=== PATIENT | male | born 1960 | race Two or more races ===

== ENCOUNTER 2017-07-08 08:51 | Inpatient (IN) | payer BC ==
[2017-07-08 09:42] VITALS: BMI 20.3
--- NOTE | 2017-07-08 13:04 | HP ---
COWS - Scale Resting Pulse: 0= [place] 80 or Below Sweatin= Chills/Flushing Restless Observation: 1= Difficult to Sit Still Pupil Size: 0= Normal to Room Light Bone or Joint Aches: 2= Severe Diffuse Aches Runny Nose/ Eye Tearin= Runny Nose/Eyes GI Upset > 30mins: 1= Stomach Cramp Tremor Observation: 2= Slight Tremor Visible Yawning Observation: 2= >3x During Session Anxiety or Irritability: 2=Irritable/Anxious Goose Flesh Skin: 0=Smooth Skin COWS Score: 13 Admission ROS S - HPI Chief Complaint: "I want to really stop doing Heroin. Patient is here to Detox from Heroin. Allergies/Adverse Reactions: Allergies Allergy/AdvReac Type Severity Reaction Status Date / Time vancomycin Allergy Severe Hives Verified 07/08/17 10:52 History of Present Illness: Patient is a 57 YO male here to Detox from Heroin. This is patient's first Detox /Rehab admission at [facility]. Patient has had previous Detox admissions at [facility] ([place] and [facility] ([place] both approx. 10 years ago. Exam Limitations: No Limitations - Ebola screening Have you traveled outside of the country in the last 21 days: No Have you had contact with anyone from an Ebola affected area: No Have you been sick,other than usual withdrawal symptoms: No Do you have a fever: No - Review of Systems Constitutional: Chills, Diaphoresis, Fever, Loss of Appetite, Malaise, Night Sweats, Changes in sleep, Unintentional Wgt. Loss (Lost Approx. 15 lbs. over last 6 months.) EENT: reports: No Symptoms Reported Respiratory: reports: SOB with Exertion Cardiac: reports: Palpitations (Only when Glucose level is low.) GI: reports: Nausea, Poor Appetite : reports: No Symptoms Reported Musculoskeletal: reports: Joint Pain, Joint Stiffness Integumentary: reports: No Symptoms Reported Neuro: reports: Headache (Occasional.), Numbness (Bilateral Lower Legs and Feet. ), Tingling (Bilateral Lower Legs and Feet.), Tremors Endocrine: reports: No Symptoms Reported Hematology: reports: Anemia Psychiatric: reports: Judgement Intact, Mood/Affect Appropiate, Orientated x3, Anxious, other (Insomnia.) Other Systems: Reviewed and Negative (Iron-Deficiency Type; Takes Daily Iron Supplement.) Patient History - Patient Medical History Hx Anemia: Yes (Iron-Deficiency type, Takes Daily Iron Supplement.) Hx Asthma: No Hx Chronic Obstructive Pulmonary Disease (COPD): No Hx Cancer: No Hx Cardiac Disorders: No Hx Congestive Heart Failure: No Hx Hypertension: Yes (On meds.) Hx Hypercholesterolemia: Yes (On med.) Hx Pacemaker: No HX Cerebrovascular Accident: No Hx Seizures: No Hx Dementia: No Hx Diabetes: Yes (IDDM.) Hx Gastrointestinal Disorders: No Hx Liver Disease: No Hx Genitourinary Disorders: No Hx Sexually Transmitted Disorders: No Hx Renal Disease (ESRD): Yes (History of Impaired Renal Function.) Hx Thyroid Disease: Yes (Hypothyroidism, On med.) Hx Human Immunodeficiency Virus (HIV): Yes (Diagnosed 1988; On meds.) Hx Hepatitis C: Yes (Completed treatment with Harvoni - 2014. Undetectable VL.) Hx Depression: No Hx Suicide Attempt: No (PATIENT DENIES CURRENT SI / HI.) Hx Bipolar Disorder: No Hx Schizophrenia: No Other Medical History: DENIES. - Patient Surgical History Past Surgical History: Yes Hx Neurologic Surgery: No Hx Cataract Extraction: No Hx Cardiac Surgery: No Hx Lung Surgery: No Hx Breast Surgery: No Hx Breast Biopsy: No Hx Abdominal Surgery: No Hx Appendectomy: Yes (in 1985) Hx Cholecystectomy: No Hx Genitourinary Surgery: No Hx Section: No Hx Orthopedic Surgery: No Other Surgical History: left inguinal hernia at age 26 Anesthesia Reaction: No - PPD History Previous Implant?: Yes Documented Results: Negative w/o proof Implanted On Prior R Admission?: No PPD to be Administered?: Yes - Reproductive History Patient is a Female of Child Bearing Age (11 -55 yrs old): No (PATIENT IS MALE.) - Smoking Cessation Smoking history: Never smoked Have you smoked in the past 12 months: No Cigars Per Day: 0 Hx Chewing Tobacco Use: No Initiated information on smoking cessation: No - Substance & Tx. History Substance Use Type: Marijuana Hx Substance Use Treatment: Yes (Detox admission at [facility] ( both approx. 10 years ago)) - Substances Abused Heroin Route: Inhalation Frequency: Daily Amount used: 4 bags Age of first use: 16 Date of Last Use: 07/07/17 Marijuana Route: Smoking Frequency: Daily Amount used: $20 Age of first use: 16 Date of Last Use: 07/07/17 Family Disease History - Family Disease History Family Disease History: Diabetes: Father (Arthritis.), Mother (Arthritis.), Other: Mother, Brother Admission Physical Exam [facility] - Vital Signs Vital Signs: Vital Signs - 24 hr 07/08/17 09:39 Temperature 93.5 F L Pulse Rate 68 Respiratory 20 Rate Blood Pressure 153/72 - Physical General Appearance: Yes: No Apparent Distress, Nourished, Appropriately Dressed , Tremorous, Anxious HEENTM: Yes: Hearing grossly Normal, Normocephalic, Normal Voice, ABILIO, Tm's normal Respiratory: Yes: Chest Non-Tender, Lungs Clear, No Respiratory Distress, No Accessory Muscle Use Neck: Yes: No masses,lesions,Nodules, Supple, Trachea in good position Breast: Yes: Breast Exam Deferred Cardiology: Yes: Regular Rhythm, Regular Rate, S1, S2 Abdominal: Yes: Normal Bowel Sounds, Non Tender, Flat, Soft Genitourinary: Yes: Within Normal Limits Back: Yes: Normal Inspection Musculoskeletal: Yes: full range of Motion, Gait Steady Extremities: Yes: Normal Range of Motion, Tremors Neurological: Yes: Fully Oriented, Alert, Normal Mood/Affect, Normal Response Integumentary: Yes: Normal Color, Dry, Warm Lymphatic: Yes: Within Normal Limits - Diagnostic (1) Opioid dependence with withdrawal Current Visit: Yes Status: Acute (2) Cannabis dependence, uncomplicated Current Visit: Yes Status: Acute (3) HIV (human immunodeficiency virus infection) Current Visit: Yes Status: Chronic (4) Hypertension Current Visit: Yes Status: Chronic Qualifiers: Hypertension type: essential hypertension Qualified Code(s): I10 - Essential (primary) hypertension (5) Hypercholesterolemia Current Visit: Yes Status: Chronic (6) Hypothyroidism Current Visit: Yes Status: Chronic Qualifiers: Hypothyroidism type: unspecified Qualified Code(s): E03.9 - Hypothyroidism , unspecified (7) History of hepatitis C Current Visit: Yes Status: Resolved Comment: Completed Treatment with Harvoni. (8) IDDM (insulin dependent diabetes mellitus) Current Visit: Yes Status: Chronic (9) Iron deficiency anemia Current Visit: Yes Status: Chronic Qualifiers: Iron deficiency anemia type: unspecified iron deficiency Qualified Code(s) : D50.9 - Iron deficiency anemia, unspecified (10) Insomnia Current Visit: Yes Status: Suspected Qualifiers: Insomnia type: unspecified Qualified Code(s): G47.00 - Insomnia, unspecified (11) Impaired renal function Current Visit: Yes Status: Suspected Cleared for Admission [facility] - Detox or Rehab [facility] Level of Care: Medically Managed Detox Regimen/Protocol: Methadone [facility] Breath Alcohol Content Breath Alcohol Content: 0 Urine Drug Screen - Results Drug Screen Negative: No Urine Drug Screen Results: THC-Marijuana, OPI-Opiates
[2017-07-08] MEDS ORDERED: IBUPROFEN 400 MG TABLET (FP) PO PRN (13:41)
[2017-07-08] MEDS ORDERED: MAG HYDROX/AL HYDROX/SIMETH 30 ML UNIT-DOSE CUP PO PRN (13:41)
[2017-07-08] MEDS ORDERED: MAGNESIUM HYDROX 2400MG/30ML ORAL SUSPENSION 30 ML CUP PO PRN (13:41)
[2017-07-08] MEDS ORDERED: guaiFENesin/D-METHORPHAN HB 10 ML UNIT-DOSE CUPS PO PRN (13:41)
[2017-07-08] MEDS ORDERED: MENTHOL/PHENOL 1 EACH UD MM PRN (13:41)
[2017-07-08] MEDS ORDERED: MAGNESIUM CITRATE 300 ML BOTTLE PO PRN (13:41)
[2017-07-08] MEDS ORDERED: P-EPHED 60MG/TRIPROLIDI 2.5MG TABLET PO PRN (13:41)
[2017-07-08] MEDS ORDERED: LOPERAMIDE HCL 2 MG CAPSULE PO PRN (13:41)
[2017-07-08] MEDS ORDERED: ACETAMINOPHEN 325 MG TABLET (FP) PO PRN (13:41)
[2017-07-08] MEDS ORDERED: DOCUSATE SODIUM 100 MG CAPSULE (FP) PO PRN (13:46)
[2017-07-08] MEDS ORDERED: METHADONE HCL 10 MG TABLET (FOR DETOX USE ONLY) PO ONE ×2 (14:43→23:00)
[2017-07-08] MEDS: diazePAM 5 MG TABLET PO PRN ×2 (15:22→20:28)
[2017-07-08] MEDS ORDERED: DOLUTEGRAVIR SODIUM 50 MG TABLET PO SCH (17:00)
[2017-07-08] MEDS ORDERED: INSULIN (NOVOLOG) ASPART 100 UNITS/ML 10ML VIAL ONE (17:02)
[2017-07-08] MEDS: INSULIN SLIDING SCALE (NOVOLOG) 1 VIAL SQ SCH (17:31)
[2017-07-08] MEDS: INSULIN DETEMIR 100 UNITS/ML MDV SQ SCH (22:02)
[2017-07-08] MEDS: THIAMINE HCL 100 MG TABLET (FP) PO SCH (22:02)
[2017-07-08 22:26] LABS: URINE APPEARANCE CLEAR; URINE BILIRUBIN NEGATIVE (NEGATIVE); URINE BLOOD NEGATIVE (NEGATIVE); URINE COLOR STRAW; URINE GLUCOSE (UA) NEGATIVE (NEGATIVE); URINE KETONE NEGATIVE (NEGATIVE); URINE LEUK ESTERASE NEGATIVE (NEGATIVE); URINE NITRITE NEGATIVE (NEGATIVE); URINE PROTEIN NEGATIVE (NEGATIVE); URINE UROBILINOGEN NEGATIVE mg/dL (0.2-1.0)
[2017-07-09] MEDS: diazePAM 5 MG TABLET PO PRN ×3 (01:40→19:05)
[2017-07-09] MEDS: LEVOTHYROXINE NA 25 MCG TABLET (FP) PO SCH (08:00)
[2017-07-09] MEDS: INSULIN SLIDING SCALE (NOVOLOG) 1 VIAL SQ SCH ×3 (08:18→16:29)
--- NOTE | 2017-07-09 09:49 | EKG ---
Test Reason : Blood Pressure : / mmHG Vent. Rate : 064 BPM Atrial Rate : 064 BPM P-R Int : 140 ms QRS Dur : 100 ms QT Int : 400 ms P-R-T Axes : 057 029 075 degrees QTc Int : 412 ms NORMAL SINUS RHYTHM WITH SINUS ARRHYTHMIA NONSPECIFIC ST AND T WAVE ABNORMALITY ABNORMAL ECG NO PREVIOUS ECGS AVAILABLE Confirmed by MD Radha, Fran ([id number]) on 07/09/2017 9:49:31 AM Referred By: Confirmed By:Fran Garcia MD
[2017-07-09 09:55] LABS: CHLORIDE 109 mmol/L (98-107); HEMATOCRIT 35.8 % (35.4-49); HEMOGLOBIN 11.6 GM/dL (11.7-16.9); MCH 30.5 pg (25.7-33.7); MCHC 32.3 g/dl (32.0-35.9); MEAN CELL VOLUME 94.3 fl (80-96); MEAN PLT VOLUME 11.2 fl (7.5-11.1); PLATELET COUNT 121 K/MM3 (134-434); POTASSIUM 5.2 mmol/L (3.5-5.1); RDW 14.6 % (11.9-15.9); SODIUM 141 mmol/L (136-145); WHITE BLOOD COUNT 6.4 K/mm3 (4.0-10.0)
[2017-07-09] MEDS ORDERED: METHADONE HCL 10 MG TABLET (FOR DETOX USE ONLY) PO ONE (10:00)
[2017-07-09] MEDS: METOPROLOL SUCCINATE 25 MG TAB.SR.24H (FP) PO SCH (10:06)
[2017-07-09] MEDS: ABACAVIR SULFATE 300 MG TABLET PO SCH (10:06)
[2017-07-09] MEDS: FERROUS SO4 325 MG TABLET (FP) PO SCH (10:06)
[2017-07-09] MEDS: PRENATAL VITAMINS W/ FOLIC ACID TABLET (FP) PO SCH (10:06)
[2017-07-09] MEDS: ASPIRIN 81 MG CHEWABLE TABLETS PO SCH (10:07)
[2017-07-09] MEDS: lamiVUDine 150 MG TABLET PO SCH (10:07)
[2017-07-09] MEDS: DOLUTEGRAVIR SODIUM 50 MG TABLET PO SCH (10:08)
[2017-07-09] MEDS: amLODIPine BESYLATE 10 MG TABLET (FP) PO SCH (10:11)
[2017-07-09] MEDS: ATORVASTATIN CA 10 MG TABLET (FP) PO SCH (10:11)
[2017-07-09 10:17] LABS: ALK PHOS 67 U/L (45-117); ANION GAP 5 (8-16); BILIRUBIN,TOTAL 0.6 mg/dL (0.2-1.0); BLOOD UREA NITROGEN 25 mg/dL (7-18); CALCIUM 9.3 mg/dL (8.5-10.1); CO2 27 mmol/L (21-32); CREATININE 1.3 mg/dL (0.7-1.3); GLUCOSE,RANDOM 156 mg/dL (74-106); SGOT/AST 21 U/L (15-37); SGPT/ALT 18 U/L (12-78); TOT PROT 7.6 g/dl (6.4-8.2)
[2017-07-09] MEDS ORDERED: INSULIN (NOVOLOG) ASPART 100 UNITS/ML 10ML VIAL ONE (11:04)
--- NOTE | 2017-07-09 11:34 | PN ---
BHS COWS - Scale Resting Pulse: 0= [place] 80 or Below Sweatin= Chills/Flushing Restless Observation: 1= Difficult to Sit Still Pupil Size: 0= Normal to Room Light Bone or Joint Aches: 0= None Runny Nose/ Eye Tearin= Runny Nose/Eyes GI Upset > 30mins: 0= None Tremor Observation of Outstretched Hands: 2= Slight Tremor Visible Yawning Observation: 2= >3x During Session Anxiety or Irritability: 2=Irritable/Anxious Goose Flesh Skin: 3=Piloerection COWS Score: 13 BHS Progress Note (SOAP) Subjective: Tremors, Fatigue, Poor Appetite, Interrupted Sleep, Sweating. Objective: PT. A & O X 3, OBSERVED AMBULATING ON UNIT. NO ACUTE DISTRESS. 07/09/17 11:29 Vital Signs Temperature 97.1 F L 07/09/17 09:04 Pulse Rate 66 07/09/17 09:04 Respiratory Rate 18 07/09/17 09:04 Blood Pressure 112/66 07/09/17 09:04 O2 Sat by Pulse Oximetry (%) Laboratory Tests 07/08/17 07/08/17 07/08/17 11:09 15:45 16:17 WBC RBC Hgb Hct MCV MCH MCHC RDW Plt Count MPV Sodium Potassium Chloride Carbon Dioxide Anion Gap BUN Creatinine Creat Clearance w eGFR POC Glucometer 158 284 Random Glucose Calcium Total Bilirubin AST ALT Alkaline Phosphatase Total Protein Albumin Urine Color Straw Urine Appearance Clear Urine pH 5.0 Ur Specific [place] 1.011 Urine Protein Negative Urine Glucose (UA) Negative Urine Ketones Negative Urine Blood Negative Urine Nitrite Negative Urine Bilirubin Negative Urine Urobilinogen Negative Ur Leukocyte Esterase Negative RPR Titer 07/08/17 07/09/17 07/09/17 21:08 05:28 06:00 WBC 6.4 RBC 3.80 L Hgb 11.6 L Hct 35.8 MCV 94.3 MCH 30.5 MCHC 32.3 RDW 14.6 Plt Count 121 L MPV 11.2 H Sodium Potassium Chloride Carbon Dioxide Anion Gap BUN Creatinine Creat Clearance w eGFR POC Glucometer 131 45 Random Glucose Calcium Total Bilirubin AST ALT Alkaline Phosphatase Total Protein Albumin Urine Color Urine Appearance Urine pH Ur Specific [place] Urine Protein Urine Glucose (UA) Urine Ketones Urine Blood Urine Nitrite Urine Bilirubin Urine Urobilinogen Ur Leukocyte Esterase RPR Titer 07/09/17 07/09/17 07/09/17 06:00 06:00 07:30 WBC RBC Hgb Hct MCV MCH MCHC RDW Plt Count MPV Sodium 141 Potassium 5.2 H Chloride 109 H Carbon Dioxide 27 Anion Gap 5 L BUN 25 H Creatinine 1.3 Creat Clearance w eGFR 57.10 POC Glucometer Random Glucose 156 H 53 L D Calcium 9.3 Total Bilirubin 0.6 AST 21 ALT 18 Alkaline Phosphatase 67 Total Protein 7.6 Albumin 4.0 Urine Color Urine Appearance Urine pH Ur Specific [place] Urine Protein Urine Glucose (UA) Urine Ketones Urine Blood Urine Nitrite Urine Bilirubin Urine Urobilinogen Ur Leukocyte Esterase RPR Titer Nonreactive 07/09/17 07/09/17 07:31 11:00 WBC RBC Hgb Hct MCV MCH MCHC RDW Plt Count MPV Sodium Potassium Chloride Carbon Dioxide Anion Gap BUN Creatinine Creat Clearance w eGFR POC Glucometer 118 172 Random Glucose Calcium Total Bilirubin AST ALT Alkaline Phosphatase Total Protein Albumin Urine Color Urine Appearance Urine pH Ur Specific [place] Urine Protein Urine Glucose (UA) Urine Ketones Urine Blood Urine Nitrite Urine Bilirubin Urine Urobilinogen Ur Leukocyte Esterase RPR Titer LABS NOTED. Assessment: 07/09/17 11:32 WITHDRAWAL SYMPTOMS. Plan: CONTINUE DETOX. REPEAT K LEVEL TOMORROW AM. BMP ON 07/11/2017 AM. INCREASE DAILY PO FLUID INTAKE.
--- NOTE | 2017-07-09 11:55 | CONSULT ---
[facility] Psychiatric Consult - Data Date of interview: 07/09/17 Admission source: [facility] Identifying data: First admission to [facility] for this 57 y/o male seeking detox treatment on for heroin and marihuana dependence.Patient is single,a father of two,domiciled,unemployed and supported on SSI benefits. Substance Abuse History: Confirmed by patient in this interview.See current [facility] report for details : Smoking history: Never smoked. Have you smoked in the past 12 months: No. Cigars Per Day: 0. Hx Chewing Tobacco Use: No. Initiated information on smoking cessation: No. - Substance & Tx. History. Substance Use Type: Marijuana. Hx Substance Use Treatment: Yes (Detox admission at [facility] (both approx. 10 years ago)). - Substances Abused. Heroin. Route: Inhalation. Frequency: Daily. Amount used: 4 bags. Age of first use: 16. Date of Last Use: 07/07/17. Marijuana. Route: Smoking. Frequency: Daily. Amount used: $20. Age of first use: 16. Date of Last Use: 07/07/17 Medical History: Multiple co-morbidities : anemia,hypertension,dyslipidemia, hepatitis C (treated),HIV infection since 1988 (on ART medications),diabetes mellitus,renal disease (ESRD) and past history of appendectomy (1985) + left inguinal herniorraphy (age 26). Psychiatric History: Patient denies.Mr Barnes admits to a history of chronic insomnia.Requests zolpidem at bedtime. Physical/Sexual Abuse/Trauma History: No reported history of abuse. Additional Comment: Urine Drug Screen Results: THC-Marijuana, OPI-Opiates.Noted. Mental Status Exam - Mental Status Exam Alert and Oriented to: Time, Place, Person Cognitive Function: Good Patient Appearance: Well Groomed Mood: Hopeful, Euthymic Affect: Appropriate, Normal Range Patient Behavior: Appropriate, Cooperative Speech Pattern: Clear, Appropriate Voice Loudness: Normal Thought Process: Intact, Goal Oriented Thought Disorder: Not Present Hallucinations: Denies Suicidal Ideation: Denies Homicidal Ideation: Denies Insight/Judgement: Fair Sleep: Poorly, Difficulty falling asleep Appetite: Good Muscle strength/Tone: Normal Gait/Station: Normal Psychiatric Findings - Problem List ([place] 1, 2,3) (1) Opioid dependence with withdrawal Current Visit: Yes Status: Acute (2) Cannabis dependence, uncomplicated Current Visit: Yes Status: Acute (3) Insomnia Current Visit: Yes Status: Acute Qualifiers: Insomnia type: unspecified Qualified Code(s): G47.00 - Insomnia, unspecified - Initial Treatment Plan Initial Treatment Plan: Psychoeducation and support provided in this session.Detoxification protocol implemented.Sleep hygiene discussed.Ambien 10 mg po hs prn.Patient is informed of risk of parasomnias (sleep-walking).Condent (verbal) given.Observation.
--- NOTE | 2017-07-09 13:27 | EKG ---
Test Reason : Blood Pressure : / mmHG Vent. Rate : 062 BPM Atrial Rate : 062 BPM P-R Int : 146 ms QRS Dur : 104 ms QT Int : 426 ms P-R-T Axes : 023 022 053 degrees QTc Int : 432 ms NORMAL SINUS RHYTHM NORMAL ECG WHEN COMPARED WITH ECG OF 08-JUL-2017 16:29, NO SIGNIFICANT CHANGE WAS FOUND Confirmed by WANG PEDERSEN MD ([id number]) on 07/09/2017 1:27:26 PM Referred By: Confirmed By:WANG PEDERSEN MD
[2017-07-09] MEDS: ZOLPIDEM TARTRATE 10 MG TABLET (PARK CARE ONLY) PO PRN (22:03)
[2017-07-09] MEDS: THIAMINE HCL 100 MG TABLET (FP) PO SCH (22:03)
[2017-07-09] MEDS: INSULIN DETEMIR 100 UNITS/ML MDV SQ SCH (22:05)
[2017-07-10] MEDS: diazePAM 5 MG TABLET PO PRN ×5 (00:51→21:48)
[2017-07-10] MEDS: INSULIN SLIDING SCALE (NOVOLOG) 1 VIAL SQ SCH ×3 (06:04→16:36)
[2017-07-10] MEDS: LEVOTHYROXINE NA 25 MCG TABLET (FP) PO SCH (06:23)
[2017-07-10] MEDS ORDERED: METHADONE HCL 5 MG TABLET (FOR DETOX USE ONLY) PO ONE (10:00)
[2017-07-10] MEDS: PRENATAL VITAMINS W/ FOLIC ACID TABLET (FP) PO SCH (10:14)
[2017-07-10] MEDS: METOPROLOL SUCCINATE 25 MG TAB.SR.24H (FP) PO SCH (10:14)
[2017-07-10] MEDS: ASPIRIN 81 MG CHEWABLE TABLETS PO SCH (10:14)
[2017-07-10] MEDS: amLODIPine BESYLATE 10 MG TABLET (FP) PO SCH (10:14)
[2017-07-10] MEDS: FERROUS SO4 325 MG TABLET (FP) PO SCH (10:14)
[2017-07-10] MEDS: ATORVASTATIN CA 10 MG TABLET (FP) PO SCH (10:14)
[2017-07-10] MEDS: DOLUTEGRAVIR SODIUM 50 MG TABLET PO SCH (10:16)
[2017-07-10] MEDS: lamiVUDine 150 MG TABLET PO SCH (10:17)
[2017-07-10] MEDS: ABACAVIR SULFATE 300 MG TABLET PO SCH (10:17)
[2017-07-10] MEDS ORDERED: BACLOFEN 10 MG TABLET (FP) PO ONE (10:34)
--- NOTE | 2017-07-10 11:35 | PN ---
BHS COWS - Scale Resting Pulse: 0= [place] 80 or Below Sweatin= Chills/Flushing Restless Observation: 1= Difficult to Sit Still Pupil Size: 0= Normal to Room Light Bone or Joint Aches: 4=Acute Joint/Muscle Pain Runny Nose/ Eye Tearin= None GI Upset > 30mins: 1= Stomach Cramp Tremor Observation of Outstretched Hands: 0= None Yawning Observation: 2= >3x During Session Anxiety or Irritability: 2=Irritable/Anxious Goose Flesh Skin: 3=Piloerection COWS Score: 14 BHS Progress Note (SOAP) Subjective: Anxious, Body Aches, Stomach Cramping. Objective: PT. A & O X 2 (UNCERTAIN ABOUT DAY / DATE). PT. OBSERVED AMBULATING ON UNIT. NO ACUTE DISTRESS. 07/10/17 11:30 Vital Signs Temperature 97.1 F L 07/10/17 08:43 Pulse Rate 71 07/10/17 08:43 Respiratory Rate 18 07/10/17 08:43 Blood Pressure 123/72 07/10/17 08:43 O2 Sat by Pulse Oximetry (%) Laboratory Tests 07/08/17 07/08/17 07/08/17 11:09 15:45 16:17 WBC RBC Hgb Hct MCV MCH MCHC RDW Plt Count MPV Sodium Potassium Chloride Carbon Dioxide Anion Gap BUN Creatinine Creat Clearance w eGFR POC Glucometer 158 284 Random Glucose Calcium Total Bilirubin AST ALT Alkaline Phosphatase Total Protein Albumin Urine Color Straw Urine Appearance Clear Urine pH 5.0 Ur Specific [place] 1.011 Urine Protein Negative Urine Glucose (UA) Negative Urine Ketones Negative Urine Blood Negative Urine Nitrite Negative Urine Bilirubin Negative Urine Urobilinogen Negative Ur Leukocyte Esterase Negative RPR Titer 07/08/17 07/09/17 07/09/17 21:08 05:28 06:00 WBC 6.4 RBC 3.80 L Hgb 11.6 L Hct 35.8 MCV 94.3 MCH 30.5 MCHC 32.3 RDW 14.6 Plt Count 121 L MPV 11.2 H Sodium Potassium Chloride Carbon Dioxide Anion Gap BUN Creatinine Creat Clearance w eGFR POC Glucometer 131 45 Random Glucose Calcium Total Bilirubin AST ALT Alkaline Phosphatase Total Protein Albumin Urine Color Urine Appearance Urine pH Ur Specific [place] Urine Protein Urine Glucose (UA) Urine Ketones Urine Blood Urine Nitrite Urine Bilirubin Urine Urobilinogen Ur Leukocyte Esterase RPR Titer 07/09/17 07/09/17 07/09/17 06:00 06:00 07:30 WBC RBC Hgb Hct MCV MCH MCHC RDW Plt Count MPV Sodium 141 Potassium 5.2 H Chloride 109 H Carbon Dioxide 27 Anion Gap 5 L BUN 25 H Creatinine 1.3 Creat Clearance w eGFR 57.10 POC Glucometer Random Glucose 156 H 53 L D Calcium 9.3 Total Bilirubin 0.6 AST 21 ALT 18 Alkaline Phosphatase 67 Total Protein 7.6 Albumin 4.0 Urine Color Urine Appearance Urine pH Ur Specific [place] Urine Protein Urine Glucose (UA) Urine Ketones Urine Blood Urine Nitrite Urine Bilirubin Urine Urobilinogen Ur Leukocyte Esterase RPR Titer Nonreactive 07/09/17 07/09/17 07/09/17 07:31 11:00 16:13 WBC RBC Hgb Hct MCV MCH MCHC RDW Plt Count MPV Sodium Potassium Chloride Carbon Dioxide Anion Gap BUN Creatinine Creat Clearance w eGFR POC Glucometer 118 172 144 Random Glucose Calcium Total Bilirubin AST ALT Alkaline Phosphatase Total Protein Albumin Urine Color Urine Appearance Urine pH Ur Specific [place] Urine Protein Urine Glucose (UA) Urine Ketones Urine Blood Urine Nitrite Urine Bilirubin Urine Urobilinogen Ur Leukocyte Esterase RPR Titer 07/09/17 07/10/17 07/10/17 21:41 05:47 07:00 WBC RBC Hgb Hct MCV MCH MCHC RDW Plt Count MPV Sodium Potassium 4.6 Chloride Carbon Dioxide Anion Gap BUN Creatinine Creat Clearance w eGFR POC Glucometer 254 104 Random Glucose Calcium Total Bilirubin AST ALT Alkaline Phosphatase Total Protein Albumin Urine Color Urine Appearance Urine pH Ur Specific [place] Urine Protein Urine Glucose (UA) Urine Ketones Urine Blood Urine Nitrite Urine Bilirubin Urine Urobilinogen Ur Leukocyte Esterase RPR Titer LABS NOTED. RESULT OF REPEAT K LEVEL NOTED. NO NEED FOR ACTION AT THIS TIME. BMP FOR TOMORROW AM. 07/10/17 11:37 Assessment: 07/10/17 11:32 WITHDRAWAL SYMPTOMS. Plan: CONTINUE DETOX. PATIENT REPORTING SPASM OF LEFT HAND (PATIENT REPORTS HISTORY OF MUSCULOSKELETAL DISORDER AFFECTING HAND, BUT UNCERTAIN ABOUT SPECIFIC TYPE.) BACLOFEN, 10 MG PO X 1 ORDERED. WILL MONITOR FOR EFFECT. INCREASE DAILY PO FLUID INTAKE. PATIENT GIVEN WATER PITCHER FOR ASSISTANCE.
--- NOTE | 2017-07-10 12:34 | PN ---
Psychiatric Progress Note Vital Signs: Vital Signs Period Temp Pulse Resp BP Sys/Sanchez Pulse Ox Last 24 Hr 97.0 F-97.6 F 64-71 18-18 114-152/64-72 Date of Session: 07/10/17 Chief Complaint:: "I am withdrawing from methadone, I can't eat and i want 14 days of rehab." HPI: Pt. admitted to for marijuana and heroin dependence. ROS: Unremarkable. Current Medications: Active Medications Generic Name Dose Route Start Last Admin Trade Name Freq PRN Reason Stop Dose Admin Abacavir Sulfate 600 mg 07/09/17 10:00 07/10/17 10:17 Ziagen - PO 600 mg DAILY [facility]ENN[facility] Administration Acetaminophen 650 mg 07/08/17 13:41 Tylenol - PO Q4H PRN FEVER OR PAIN Amlodipine Besylate 10 mg 07/09/17 10:00 07/10/17 10:14 Norvasc - PO 10 mg DAILY JENNIFER Administration Aspirin 81 mg 07/09/17 10:00 07/10/17 10:14 Asa - PO 81 mg DAILY JENNIFER Administration Atorvastatin Calcium 10 mg 07/09/17 10:00 07/10/17 10:14 Lipitor - PO 10 mg DAILY [facility]ENN[facility]ER Administration Diazepam 10 mg 07/08/17 13:41 07/10/17 10:12 Valium - PO 07/11/17 13:40 10 mg Q4H PRN Administration WITHDRAWAL(CONT SUBST) Docusate Sodium 100 mg 07/08/17 13:46 Colace - PO TID PRN CONSTIPATION Eucalyptus/Menthol/Phenol/Sorbitol 1 each 07/08/17 13:41 Cepastat Lozenge - MM Q4H PRN SORE THROAT Ferrous Sulfate 325 mg 07/09/17 10:00 07/10/17 10:14 Feosol - PO 325 mg DAILY [facility] Administration Guaifenesin 10 ml 07/08/17 13:41 Robitussin Dm - PO Q6H PRN COUGH Insulin Aspart 0 vial 07/08/17 16:30 07/10/17 11:35 Novolog Vial Sliding Scale - SQ Not Given TIDAC [facility] Protocol Insulin Detemir 15 units 07/08/17 22:00 07/09/17 22:05 Levemir Vial SQ 15 units HS [facility] Administration Lamivudine 150 mg 07/09/17 10:00 07/10/17 10:17 Epivir - PO 150 mg DAILY JENNIFER Administration Levothyroxine Sodium 75 mcg 07/09/17 07:00 07/10/17 06:23 Synthroid - PO 75 mcg DAILY@0700 [facility] Administration Loperamide HCl 4 mg 07/08/17 13:41 Imodium - PO Q6H PRN DIARRHEA Methadone HCl 5 mg 07/13/17 06:00 Dolophine - PO 07/13/17 06:01 ONCE@0600 ONE Methadone HCl 15 mg 07/11/17 10:00 Dolophine - PO 07/11/17 10:01 ONCE ONE Methadone HCl 10 mg 07/12/17 10:00 Dolophine - PO 07/12/17 10:01 ONCE ONE Metoprolol Succinate 25 mg 07/09/17 10:00 07/10/17 10:14 Toprol Xl - PO 25 mg DAILY [facility] Administration Multivit/Folic Acid/Iron 1 tab 07/09/17 10:00 07/10/17 10:14 Vitamins (Sjr) - PO 1 tab DAILY [facility] Administration Pseudoephedrine/Triprolidine 1 combo 07/08/17 13:41 Actifed - PO TID PRN NASAL CONGESTION Thiamine HCl 100 mg 07/08/17 22:00 07/09/17 22:03 Vitamin B1 - PO 100 mg HS [facility] Administration Zolpidem Tartrate 10 mg 07/09/17 22:00 07/09/17 22:03 Ambien - PO 07/12/17 21:59 10 mg HS PRN Administration INSOMNIA Medication(s) Change(s): No. Current Side Effect: No Lab tests ordered: No Lab tests reviewed: Yes Provider note:: Order Processor approached patient bedside in reference to psychiatric reconsultation. Pt. stated to appeals writer, " I am withdrawing from methadone, I can' t eat and i would like rehab for 14 days." Pt offered reassurance and reminded that it takes several days to feel better when detoxing. Psychoeducation provided and recommended he follow up with his counselor concerning which rehab he will attend after completing detox. Pt. receptive to feedback. Total face to face time:: 15 Mental Status Exam - Mental Status Exam Alert and Oriented to: Time, Place, Person Cognitive Function: Good Patient Appearance: Unkempt Mood: Anxious Affect: Normal Range Patient Behavior: Cooperative Speech Pattern: Clear Voice Loudness: Normal Thought Process: Goal Oriented Thought Disorder: Not Present Hallucinations: Denies Suicidal Ideation: Denies Homicidal Ideation: Denies Insight/Judgement: Poor Sleep: Poorly Appetite: Fair Muscle strength/Tone: Normal Gait/Station: Normal Psychiatric Treatment Plan - Problem List (1) Opioid dependence with withdrawal Current Visit: Yes (2) Cannabis dependence, uncomplicated Current Visit: Yes (3) Insomnia Current Visit: Yes Qualifiers: Insomnia type: unspecified Qualified Code(s): G47.00 - Insomnia, unspecified
[2017-07-10] MEDS: INSULIN DETEMIR 100 UNITS/ML MDV SQ SCH (21:03)
[2017-07-10] MEDS: THIAMINE HCL 100 MG TABLET (FP) PO SCH (21:46)
[2017-07-10] MEDS: ZOLPIDEM TARTRATE 10 MG TABLET (PARK CARE ONLY) PO PRN (22:00)
[2017-07-11] MEDS ORDERED: INSULIN (NOVOLOG) ASPART 100 UNITS/ML 10ML VIAL ONE ×2 (06:32→06:33)
[2017-07-11] MEDS: LEVOTHYROXINE NA 25 MCG TABLET (FP) PO SCH (06:35)
[2017-07-11] MEDS: INSULIN SLIDING SCALE (NOVOLOG) 1 VIAL SQ SCH ×3 (06:36→16:28)
[2017-07-11] MEDS: diazePAM 5 MG TABLET PO PRN ×2 (08:37→13:09)
[2017-07-11] MEDS: PRENATAL VITAMINS W/ FOLIC ACID TABLET (FP) PO SCH (09:38)
[2017-07-11] MEDS: ATORVASTATIN CA 10 MG TABLET (FP) PO SCH (09:38)
[2017-07-11] MEDS: FERROUS SO4 325 MG TABLET (FP) PO SCH (09:38)
[2017-07-11] MEDS: METOPROLOL SUCCINATE 25 MG TAB.SR.24H (FP) PO SCH (09:38)
[2017-07-11] MEDS: lamiVUDine 150 MG TABLET PO SCH (09:39)
[2017-07-11] MEDS: DOLUTEGRAVIR SODIUM 50 MG TABLET PO SCH (09:39)
[2017-07-11] MEDS: amLODIPine BESYLATE 10 MG TABLET (FP) PO SCH (09:39)
[2017-07-11] MEDS: ASPIRIN 81 MG CHEWABLE TABLETS PO SCH (09:39)
[2017-07-11] MEDS: ABACAVIR SULFATE 300 MG TABLET PO SCH (09:39)
[2017-07-11] MEDS ORDERED: METHADONE HCL 5 MG TABLET (FOR DETOX USE ONLY) PO ONE (10:00)
--- NOTE | 2017-07-11 10:17 | PN ---
[facility] Progress Note (SOAP) Subjective: ANXIETY,SWEATS,INTERMITTENT SLEEP. Objective: 07/11/17 10:17 Vital Signs Temperature 97.8 F 07/11/17 09:15 Pulse Rate 77 07/11/17 09:15 Respiratory Rate 18 07/11/17 09:15 Blood Pressure 119/66 07/11/17 09:15 O2 Sat by Pulse Oximetry (%) Laboratory Last Values WBC 6.4 K/mm3 (4.0-10.0) 07/09/17 06:00 RBC 3.80 M/mm3 (4.00-5.60) L 07/09/17 06:00 Hgb 11.6 GM/dL (11.7-16.9) L 07/09/17 06:00 Hct 35.8 % (35.4-49) 07/09/17 06:00 MCV 94.3 fl (80-96) 07/09/17 06:00 MCH 30.5 pg (25.7-33.7) 07/09/17 06:00 MCHC 32.3 g/dl (32.0-35.9) 07/09/17 06:00 RDW 14.6 % (11.9-15.9) 07/09/17 06:00 Plt Count 121 K/MM3 (134-434) L 07/09/17 06:00 MPV 11.2 fl (7.5-11.1) H 07/09/17 06:00 Sodium 141 mmol/L (136-145) 07/09/17 06:00 Potassium 4.6 mmol/L (3.5-5.1) 07/10/17 07:00 Chloride 109 mmol/L (98-107) H 07/09/17 06:00 Carbon Dioxide 27 mmol/L (21-32) 07/09/17 06:00 Anion Gap 5 (8-16) L 07/09/17 06:00 BUN 25 mg/dL (7-18) H 07/09/17 06:00 Creatinine 1.3 mg/dL (0.7-1.3) 07/09/17 06:00 Creat Clearance w eGFR 57.10 (>60) 07/09/17 06:00 POC Glucometer 248 UNITS (80-120) 07/11/17 06:27 Random Glucose 53 mg/dL (74-106) L D 07/09/17 07:30 Calcium 9.3 mg/dL (8.5-10.1) 07/09/17 06:00 Total Bilirubin 0.6 mg/dL (0.2-1.0) 07/09/17 06:00 AST 21 U/L (15-37) 07/09/17 06:00 ALT 18 U/L (12-78) 07/09/17 06:00 Alkaline Phosphatase 67 U/L (45-117) 07/09/17 06:00 Total Protein 7.6 g/dl (6.4-8.2) 07/09/17 06:00 Albumin 4.0 g/dl (3.4-5.0) 07/09/17 06:00 Urine Color Straw 07/08/17 15:45 Urine Appearance Clear 07/08/17 15:45 Urine pH 5.0 (5.0-8.0) 07/08/17 15:45 Ur Specific [place] 1.011 (1.001-1.035) 07/08/17 15:45 Urine Protein Negative (NEGATIVE) 07/08/17 15:45 Urine Glucose (UA) Negative (NEGATIVE) 07/08/17 15:45 Urine Ketones Negative (NEGATIVE) 07/08/17 15:45 Urine Blood Negative (NEGATIVE) 07/08/17 15:45 Urine Nitrite Negative (NEGATIVE) 07/08/17 15:45 Urine Bilirubin Negative (NEGATIVE) 07/08/17 15:45 Urine Urobilinogen Negative mg/dL (0.2-1.0) 07/08/17 15:45 Ur Leukocyte Esterase Negative (NEGATIVE) 07/08/17 15:45 RPR Titer Nonreactive (NONREACTIVE) 07/09/17 06:00 Assessment: 07/11/17 10:17 WITHDRAWAL SX Plan: CONTINUE DETOX AMBIEN FOR SLEEP.
[2017-07-11 10:38] LABS: ANION GAP 4 (8-16); BLOOD UREA NITROGEN 33 mg/dL (7-18); CALCIUM 8.8 mg/dL (8.5-10.1); CHLORIDE 110 mmol/L (98-107); CO2 28 mmol/L (21-32); GLUCOSE,RANDOM 212 mg/dL (74-106); SODIUM 142 mmol/L (136-145)
[2017-07-11 10:40] LABS: CREATININE 1.5 mg/dL (0.7-1.3)
[2017-07-11] MEDS: INSULIN DETEMIR 100 UNITS/ML MDV SQ SCH (21:30)
[2017-07-11] MEDS: ZOLPIDEM TARTRATE 10 MG TABLET (PARK CARE ONLY) PO PRN (22:04)
[2017-07-11] MEDS: THIAMINE HCL 100 MG TABLET (FP) PO SCH (22:04)
[2017-07-12] MEDS: LEVOTHYROXINE NA 25 MCG TABLET (FP) PO SCH (06:27)
[2017-07-12] MEDS: INSULIN SLIDING SCALE (NOVOLOG) 1 VIAL SQ SCH ×3 (06:31→17:08)
[2017-07-12] MEDS ORDERED: METHADONE HCL 10 MG TABLET (FOR DETOX USE ONLY) PO ONE (10:00)
[2017-07-12] MEDS: METOPROLOL SUCCINATE 25 MG TAB.SR.24H (FP) PO SCH (10:06)
[2017-07-12] MEDS: FERROUS SO4 325 MG TABLET (FP) PO SCH (10:06)
[2017-07-12] MEDS: ATORVASTATIN CA 10 MG TABLET (FP) PO SCH (10:06)
[2017-07-12] MEDS: PRENATAL VITAMINS W/ FOLIC ACID TABLET (FP) PO SCH (10:06)
[2017-07-12] MEDS: ABACAVIR SULFATE 300 MG TABLET PO SCH (10:07)
[2017-07-12] MEDS: DOLUTEGRAVIR SODIUM 50 MG TABLET PO SCH (10:07)
[2017-07-12] MEDS: amLODIPine BESYLATE 10 MG TABLET (FP) PO SCH (10:07)
[2017-07-12] MEDS: ASPIRIN 81 MG CHEWABLE TABLETS PO SCH (10:07)
[2017-07-12] MEDS: lamiVUDine 150 MG TABLET PO SCH (10:07)
--- NOTE | 2017-07-12 10:49 | PN ---
[facility] Progress Note (SOAP) Subjective: Shakes, sweats, interrupted sleep and irritability Objective: 07/12/17 10:47 Vital Signs - 8 hr 07/12/17 07/12/17 07/12/17 03:30 06:10 09:35 Temperature 97 F L 96.4 F L Pulse Rate 66 88 Respiratory 18 18 18 Rate Blood Pressure 102/56 103/66 Laboratory Last Values WBC 6.4 K/mm3 (4.0-10.0) 07/09/17 06:00 RBC 3.80 M/mm3 (4.00-5.60) L 07/09/17 06:00 Hgb 11.6 GM/dL (11.7-16.9) L 07/09/17 06:00 Hct 35.8 % (35.4-49) 07/09/17 06:00 MCV 94.3 fl (80-96) 07/09/17 06:00 MCH 30.5 pg (25.7-33.7) 07/09/17 06:00 MCHC 32.3 g/dl (32.0-35.9) 07/09/17 06:00 RDW 14.6 % (11.9-15.9) 07/09/17 06:00 Plt Count 121 K/MM3 (134-434) L 07/09/17 06:00 MPV 11.2 fl (7.5-11.1) H 07/09/17 06:00 Sodium 142 mmol/L (136-145) 07/11/17 06:30 Potassium 5.0 mmol/L (3.5-5.1) 07/11/17 06:30 Chloride 110 mmol/L (98-107) H 07/11/17 06:30 Carbon Dioxide 28 mmol/L (21-32) 07/11/17 06:30 Anion Gap 4 (8-16) L 07/11/17 06:30 BUN 33 mg/dL (7-18) H D 07/11/17 06:30 Creatinine 1.5 mg/dL (0.7-1.3) H 07/11/17 06:30 Creat Clearance w eGFR 57.10 (>60) 07/09/17 06:00 POC Glucometer 118 UNITS (80-120) 07/12/17 06:30 Random Glucose 212 mg/dL (74-106) H D 07/11/17 06:30 Calcium 8.8 mg/dL (8.5-10.1) 07/11/17 06:30 Total Bilirubin 0.6 mg/dL (0.2-1.0) 07/09/17 06:00 AST 21 U/L (15-37) 07/09/17 06:00 ALT 18 U/L (12-78) 07/09/17 06:00 Alkaline Phosphatase 67 U/L (45-117) 07/09/17 06:00 Total Protein 7.6 g/dl (6.4-8.2) 07/09/17 06:00 Albumin 4.0 g/dl (3.4-5.0) 07/09/17 06:00 Urine Color Straw 07/08/17 15:45 Urine Appearance Clear 07/08/17 15:45 Urine pH 5.0 (5.0-8.0) 07/08/17 15:45 Ur Specific [place] 1.011 (1.001-1.035) 07/08/17 15:45 Urine Protein Negative (NEGATIVE) 07/08/17 15:45 Urine Glucose (UA) Negative (NEGATIVE) 07/08/17 15:45 Urine Ketones Negative (NEGATIVE) 07/08/17 15:45 Urine Blood Negative (NEGATIVE) 07/08/17 15:45 Urine Nitrite Negative (NEGATIVE) 07/08/17 15:45 Urine Bilirubin Negative (NEGATIVE) 07/08/17 15:45 Urine Urobilinogen Negative mg/dL (0.2-1.0) 07/08/17 15:45 Ur Leukocyte Esterase Negative (NEGATIVE) 07/08/17 15:45 RPR Titer Nonreactive (NONREACTIVE) 07/09/17 06:00 Labs noted, elevated BUN/Cr, pt with known CKD. Assessment: 07/12/17 10:48 Withdrawal sx Plan: Continue detox
[2017-07-12] MEDS ORDERED: INSULIN (NOVOLOG) ASPART 100 UNITS/ML 10ML VIAL ONE (16:57)
[2017-07-12] MEDS: ZOLPIDEM TARTRATE 10 MG TABLET (PARK CARE ONLY) PO PRN (21:58)
[2017-07-12] MEDS: THIAMINE HCL 100 MG TABLET (FP) PO SCH (22:10)
[2017-07-12] MEDS: INSULIN DETEMIR 100 UNITS/ML MDV SQ SCH (22:11)
[2017-07-13 05:57] VITALS: BP 127/73; PULSE 81; TEMP 96.8
[2017-07-13] MEDS: LEVOTHYROXINE NA 25 MCG TABLET (FP) PO SCH (05:59)
[2017-07-13] MEDS ORDERED: METHADONE HCL 5 MG TABLET (FOR DETOX USE ONLY) PO ONE (06:00)
[2017-07-13] MEDS ORDERED: INSULIN (NOVOLOG) ASPART 100 UNITS/ML 10ML VIAL ONE (06:02)
[2017-07-13] MEDS: INSULIN SLIDING SCALE (NOVOLOG) 1 VIAL SQ SCH (07:04)
--- NOTE | 2017-07-13 11:00 | DS ---
[facility] Detox Discharge Summary Admission Date: 07/08/17 Discharge Date: 07/13/17 - History Present History: Cannabis Dependence, Opioid Dependence Pertinent Past History: HIV Hep C Hypothyroidism HTN DM type II Hypercholesterolemia CKD - Physical Exam Results Vital Signs: Vital Signs Temperature 96.8 F L 07/13/17 05:57 Pulse Rate 81 07/13/17 05:57 Respiratory Rate 18 07/13/17 05:57 Blood Pressure 127/73 07/13/17 05:57 O2 Sat by Pulse Oximetry (%) Pertinent Admission Physical Exam Findings: Withdrawal Symptoms Laboratory Tests 07/08/17 07/08/17 07/08/17 11:09 15:45 16:17 WBC RBC Hgb Hct MCV MCH MCHC RDW Plt Count MPV Sodium Potassium Chloride Carbon Dioxide Anion Gap BUN Creatinine Creat Clearance w eGFR POC Glucometer 158 284 Random Glucose Calcium Total Bilirubin AST ALT Alkaline Phosphatase Total Protein Albumin Urine Color Straw Urine Appearance Clear Urine pH 5.0 Ur Specific [place] 1.011 Urine Protein Negative Urine Glucose (UA) Negative Urine Ketones Negative Urine Blood Negative Urine Nitrite Negative Urine Bilirubin Negative Urine Urobilinogen Negative Ur Leukocyte Esterase Negative RPR Titer 07/08/17 07/09/17 07/09/17 21:08 05:28 06:00 WBC 6.4 RBC 3.80 L Hgb 11.6 L Hct 35.8 MCV 94.3 MCH 30.5 MCHC 32.3 RDW 14.6 Plt Count 121 L MPV 11.2 H Sodium Potassium Chloride Carbon Dioxide Anion Gap BUN Creatinine Creat Clearance w eGFR POC Glucometer 131 45 Random Glucose Calcium Total Bilirubin AST ALT Alkaline Phosphatase Total Protein Albumin Urine Color Urine Appearance Urine pH Ur Specific [place] Urine Protein Urine Glucose (UA) Urine Ketones Urine Blood Urine Nitrite Urine Bilirubin Urine Urobilinogen Ur Leukocyte Esterase RPR Titer 07/09/17 07/09/17 07/09/17 06:00 06:00 07:30 WBC RBC Hgb Hct MCV MCH MCHC RDW Plt Count MPV Sodium 141 Potassium 5.2 H Chloride 109 H Carbon Dioxide 27 Anion Gap 5 L BUN 25 H Creatinine 1.3 Creat Clearance w eGFR 57.10 POC Glucometer Random Glucose 156 H 53 L D Calcium 9.3 Total Bilirubin 0.6 AST 21 ALT 18 Alkaline Phosphatase 67 Total Protein 7.6 Albumin 4.0 Urine Color Urine Appearance Urine pH Ur Specific [place] Urine Protein Urine Glucose (UA) Urine Ketones Urine Blood Urine Nitrite Urine Bilirubin Urine Urobilinogen Ur Leukocyte Esterase RPR Titer Nonreactive 07/09/17 07/09/17 07/09/17 07:31 11:00 16:13 WBC RBC Hgb Hct MCV MCH MCHC RDW Plt Count MPV Sodium Potassium Chloride Carbon Dioxide Anion Gap BUN Creatinine Creat Clearance w eGFR POC Glucometer 118 172 144 Random Glucose Calcium Total Bilirubin AST ALT Alkaline Phosphatase Total Protein Albumin Urine Color Urine Appearance Urine pH Ur Specific [place] Urine Protein Urine Glucose (UA) Urine Ketones Urine Blood Urine Nitrite Urine Bilirubin Urine Urobilinogen Ur Leukocyte Esterase RPR Titer 07/09/17 07/10/17 07/10/17 21:41 05:47 07:00 WBC RBC Hgb Hct MCV MCH MCHC RDW Plt Count MPV Sodium Potassium 4.6 Chloride Carbon Dioxide Anion Gap BUN Creatinine Creat Clearance w eGFR POC Glucometer 254 104 Random Glucose Calcium Total Bilirubin AST ALT Alkaline Phosphatase Total Protein Albumin Urine Color Urine Appearance Urine pH Ur Specific [place] Urine Protein Urine Glucose (UA) Urine Ketones Urine Blood Urine Nitrite Urine Bilirubin Urine Urobilinogen Ur Leukocyte Esterase RPR Titer 07/10/17 07/10/17 07/10/17 11:25 16:24 20:46 WBC RBC Hgb Hct MCV MCH MCHC RDW Plt Count MPV Sodium Potassium Chloride Carbon Dioxide Anion Gap BUN Creatinine Creat Clearance w eGFR POC Glucometer 108 149 471 Random Glucose Calcium Total Bilirubin AST ALT Alkaline Phosphatase Total Protein Albumin Urine Color Urine Appearance Urine pH Ur Specific [place] Urine Protein Urine Glucose (UA) Urine Ketones Urine Blood Urine Nitrite Urine Bilirubin Urine Urobilinogen Ur Leukocyte Esterase RPR Titer 07/11/17 07/11/17 07/11/17 06:27 06:30 11:23 WBC RBC Hgb Hct MCV MCH MCHC RDW Plt Count MPV Sodium 142 Potassium 5.0 Chloride 110 H Carbon Dioxide 28 Anion Gap 4 L BUN 33 H D Creatinine 1.5 H Creat Clearance w eGFR POC Glucometer 248 113 Random Glucose 212 H D Calcium 8.8 Total Bilirubin AST ALT Alkaline Phosphatase Total Protein Albumin Urine Color Urine Appearance Urine pH Ur Specific [place] Urine Protein Urine Glucose (UA) Urine Ketones Urine Blood Urine Nitrite Urine Bilirubin Urine Urobilinogen Ur Leukocyte Esterase RPR Titer 07/11/17 07/12/17 07/12/17 11:25 06:30 11:45 WBC RBC Hgb Hct MCV MCH MCHC RDW Plt Count MPV Sodium Potassium Chloride Carbon Dioxide Anion Gap BUN Creatinine Creat Clearance w eGFR POC Glucometer 126 118 133 Random Glucose Calcium Total Bilirubin AST ALT Alkaline Phosphatase Total Protein Albumin Urine Color Urine Appearance Urine pH Ur Specific [place] Urine Protein Urine Glucose (UA) Urine Ketones Urine Blood Urine Nitrite Urine Bilirubin Urine Urobilinogen Ur Leukocyte Esterase RPR Titer 07/12/17 07/12/17 07/13/17 16:16 21:50 05:58 WBC RBC Hgb Hct MCV MCH MCHC RDW Plt Count MPV Sodium Potassium Chloride Carbon Dioxide Anion Gap BUN Creatinine Creat Clearance w eGFR POC Glucometer 187 215 187 Random Glucose Calcium Total Bilirubin AST ALT Alkaline Phosphatase Total Protein Albumin Urine Color Urine Appearance Urine pH Ur Specific [place] Urine Protein Urine Glucose (UA) Urine Ketones Urine Blood Urine Nitrite Urine Bilirubin Urine Urobilinogen Ur Leukocyte Esterase RPR Titer 07/13/17 07:41 WBC RBC Hgb Hct MCV MCH MCHC RDW Plt Count MPV Sodium Potassium Chloride Carbon Dioxide Anion Gap BUN Creatinine Creat Clearance w eGFR POC Glucometer 51 Random Glucose Calcium Total Bilirubin AST ALT Alkaline Phosphatase Total Protein Albumin Urine Color Urine Appearance Urine pH Ur Specific [place] Urine Protein Urine Glucose (UA) Urine Ketones Urine Blood Urine Nitrite Urine Bilirubin Urine Urobilinogen Ur Leukocyte Esterase RPR Titer Labs noted - Treatment Hospital Course: Detox Protocol Followed, Detoxed Safely, Responded well, Discharged Condition Good, Rehab Referral Accepted Patient has Accepted a Rehab Referral to: [facility] - Medication Discharge Medications: Ambulatory Orders Abacavir Sulfate [Ziagen -] 600 mg PO DAILY 07/08/17 Amlodipine Besylate [Norvasc -] 10 mg PO DAILY 07/08/17 Aspirin [ASA -] 81 mg PO DAILY 07/08/17 Atorvastatin Calcium [Lipitor] 10 mg PO DAILY 07/08/17 Docusate Sodium [Colace -] 100 mg PO QID PRN 07/08/17 Dolutegravir Sodium [Tivicay] 50 mg PO DAILY 07/08/17 Ferrous Sulfate [Feosol] 325 mg PO DAILY 07/08/17 Insulin Glargine,Hum.rec.anlog [Lantus Solostar] 15 unit SQ HS 07/08/17 Insulin Lispro [Humalog] 0 unit SQ PRN PRN 07/08/17 Lamivudine [Epivir] 150 mg PO DAILY 07/08/17 Levothyroxine [Synthroid -] 75 mcg PO DAILY 07/08/17 Metoprolol Succinate [Toprol Xl] 25 mg PO DAILY 07/08/17 - Diagnosis (1) Opioid dependence with withdrawal Status: Acute (2) Cannabis dependence, uncomplicated Status: Acute (3) HIV (human immunodeficiency virus infection) Status: Chronic (4) Hypertension Status: Chronic Qualifiers: Hypertension type: essential hypertension Qualified Code(s): I10 - Essential (primary) hypertension (5) Hypercholesterolemia Status: Chronic (6) Hypothyroidism Status: Chronic Qualifiers: Hypothyroidism type: unspecified Qualified Code(s): E03.9 - Hypothyroidism , unspecified (7) History of hepatitis C Status: Resolved (8) IDDM (insulin dependent diabetes mellitus) Status: Chronic (9) Insomnia Status: Acute Qualifiers: Insomnia type: unspecified Qualified Code(s): G47.00 - Insomnia, unspecified (10) CKD (chronic kidney disease) Status: Chronic - AMA Did Patient Leave Against Medical Advice: No
== END 2017-07-13 09:25 | disposition home or self-care (01) | DRG 423 ==
LOC: YASAS 08:51 → Y3N 11:41
PROVIDERS: ADMIT Internal Medicine; ATTEND Internal Medicine
PROC: HZ2ZZZZ Detoxification Services for Substance Abuse Treatment (ICD-10-PCS; principal; 2017-07-11)
DX: E78.00 Pure hypercholesterolemia, unspecified (principal); F11.23 Opioid dependence with withdrawal; F12.20 Cannabis dependence, uncomplicated; I10 Essential (primary) hypertension; E11.9 Type 2 diabetes mellitus without complications; Z79.4 Long term (current) use of insulin; E03.9 Hypothyroidism, unspecified; G47.00 Insomnia, unspecified; D50.9 Iron deficiency anemia, unspecified; N18.9 Chronic kidney disease, unspecified
CPT/HCPCS: 36415; 80048; 80053; 81003; 82947; 82962; 84132; 85027; 86593; 93005; 93010; J0475